=== PATIENT | female | born 1945 | race American Indian/Alaskan Native ===

== ENCOUNTER 2017-04-07 06:19 | Day surgery (SDC) | payer MEDICARE, OTHER ==
[2017-03-29 12:01] VITALS: BMI 37.4
[2017-04-07 07:11] LABS: BASO # 0.02 K/mm3 (0.0-2.0); BASO % 0.4 % (0.0-3.0); EOS # 0.1 (0.0-0.7); GRAN # 2.92 (1.4-6.5); GRAN % 62.7 % (50.0-68.0); HEMOGLOBIN 10.1 g/dL (12.0-16.0); LYMPH # 1.3 (1.2-3.4); LYMPH % 27.5 % (22.0-35.0); MEAN CELL VOLUME 84.3 fl (80.0-105.0); MEAN CORPUSCULAR HEMOGLOBIN 25.6 pg (25.0-35.0); MEAN CORPUSCULAR HGB CONC 30.4 g/dl (31.0-37.0); MEAN PLATELET VOLUME 10.5 fl (7.0-11.0); MONO # 0.3 (0.1-0.6); MONO % 6.4 % (1.0-6.0); RBC 3.94 10^6/uL (3.5-6.1); RED CELL DISTRIBUTION WIDTH 15.3 % (11.5-14.5); WHITE BLOOD COUNT 4.7 10^3/ul (4.5-11.0)
[2017-04-07] MEDS ORDERED: Lidocaine 2% Inj (20ml) ONE (07:17)
[2017-04-07] MEDS ORDERED: Phenylephrine 10 mg/ml Inj ONE (07:17)
[2017-04-07] MEDS ORDERED: Midazolam 2 MG/2 ML VIAL ONE ×2 (07:18→08:22)
[2017-04-07] MEDS ORDERED: Iohexol 350mgl/ml 50 ML ONE (07:18)
[2017-04-07] MEDS ORDERED: Iodixanol 320 MG/ML 200 ML BOTTLE IV ONE (07:18)
[2017-04-07] MEDS ORDERED: Iodixanol 320 MG/ML 100 ML BOTTLE IV ONE (07:18)
[2017-04-07 07:19] LABS: CALCIUM 9.7 mg/dL (8.4-10.5)
[2017-04-07] MEDS ORDERED: Nitroglycerin 50mg in D5W 50 MG/250 ML BOTTLE IV ONE (07:19)
[2017-04-07] MEDS ORDERED: HEPARIN SODIUM/NS 2,000 ML IV ONE (07:19)
[2017-04-07 07:25] LABS: INR 1.08 (0.93-1.08); PARTIAL THROMBOPLASTIN TIME 29.7 Seconds (25.1-36.5); PROTHROMBIN TIME 11.9 SECONDS (9.4-12.5)
--- NOTE | 2017-04-07 08:08 | HP ---
REASON FOR ADMISSION: Left heart cath, possible angioplasty, abnormal stress test. BRIEF CLINICAL HISTORY: This is a 71-year-old female with past medical history significant for diabetes, hypertension, hyperlipidemia, PAD, who had abnormal stress test, the patient is scheduled for elective cardiac cath, possible angioplasty. The patient is complaining of chest discomfort and was referred to Dr. Spaulding by Dr. Emily Zavala for cardiac evaluation because of shortness of breath and chest pain. PAST MEDICAL HISTORY: Significant for hypertension, gastroesophageal reflux disease, borderline diabetes. SOCIAL HISTORY: Denies any smoking. Denies any history of alcohol abuse. CURRENT MEDICATIONS: The patient is taking albuterol, ProAir, valsartan, tramadol, omeprazole, Singulair, gabapentin, carvedilol, aspirin, and Xanax. ALLERGIES: TO CODEINE. PREVIOUS CARDIAC WORKUP: As follows, the patient had a stress test dated 02/23/2017 that shows abnormal study, partially reversible anteroseptal defect suspicious for ischemia, ejection fraction 73%. When comparison made from 08/05/2014, these defects appear to be new. REVIEW OF SYSTEMS: As per HPI. PHYSICAL EXAMINATION: VITAL SIGNS: Height of the patient is 5 feet 6 inches, weight of the patient is 232 pounds, body mass index 37.4 kg/m sq. Rest of the examination as follows. Heart rate 56, blood pressure 130/70. HEENT: PERRLA, intact. NECK: Supple. No carotid bruits. No thyromegaly. CHEST: Clear to auscultation. HEART: S1 and S2 regular. ABDOMEN: Soft. EXTREMITIES: Clubbing and cyanosis negative. IMPRESSION: Hypertension, borderline diabetes, hyperlipidemia, abnormal stress test. The patient is scheduled for elective cardiac cath, possible angioplasty. Risks, benefits, and alternatives were discussed with the patient. The patient agreed. We will proceed for cardiac catheterization. We will follow the lab result when the lab result available. We will give 300 mg of Plavix and 325 mg of aspirin. Further recommendation after the cardiac catheterization. We will follow with you. Thank you, Dr. Spaulding/Dr. Emily Zavala for providing us the opportunity in taking care of the patient, Selma Blackburn. We will update you the patient's condition after the cardiac catheterization. Antolin Tobar MD cc: MD Emily Claudio DO MTDD
[2017-04-07 08:12] VITALS: RESP 18
[2017-04-07] MEDS ORDERED: Bacitracin 500 Units/gm Oint Foilpak UD TOP ONE (08:47)
[2017-04-07] MEDS ORDERED: Potassium Chloride 20 mEq ER Tab PO ONE (08:50)
[2017-04-07] MEDS ORDERED: Sodium Chloride 0.9% 1,000 ML IV SCH (09:00)
[2017-04-07 09:20] VITALS: TEMP 97.8
[2017-04-07] MEDS ORDERED: Bacitracin 500 Units/gm Oint Foilpak UD ONE (10:59)
[2017-04-07 11:49] VITALS: PULSE 69; O2SAT 100
[2017-04-07 12:04] VITALS: BP 175/93
--- NOTE | 2017-04-07 15:24 | CARD ---
APPROVED REPORT Procedure(s) performed: Left Heart Catheterization HISTORY The patient is a 71 year-old female with a history of : most recent EF: 73%. (EF Method: RADIONUCLIDE), peripheral vascular disease, chronic lung disease, tobacco history() : The patient is a current smoker , hypertension , dyslipidemia . INDICATION The indication(s) include : positive stress test, dyspnea. CASE TECHNIQUE The patient was brought electively to the Cardiac Catheterization Laboratory in a fasting state and was prepped and draped in a sterile manner. The left wrist was infiltrated with 2% Lidocaine subcutaneous anesthesia. A 6FR Dianwoba ACCESS KIT sheath was inserted into the performed using coronary diagnostic catheters. The left coronary system was accessed and visualized with a Diagnostic catheter. The right coronary system was accessed and visualized with a Diagnostic catheter. The left ventricle was accessed and visualized with a 5 Fr Pigtail 145 (Angled) catheter. Left ventriculogram was performed in JONES projection. Closure device was deployed with a Fr TR Band (Large) without any complications. The patient tolerated the procedure well and there were no complications associated with the procedure. Vessel Analysis The patient's coronary anatomy is left dominant. The left main coronary artery is a large size vessel with diffuse calcification noted throughout this vessel and without significant stenosis. The left main bifurcates to the left anterior descending and circumflex. The left anterior descending artery is a large size vessel with diffuse calcification noted throughout this vessel and without significant stenosis. There is a 40-50% stenosis in the proximal segment. The first diagonal branch is a medium size vessel with diffuse calcification noted throughout this vessel and without significant stenosis. There is a 40% stenosis in the ostial segment. The second diagonal branch is a small size vessel with diffuse calcification noted throughout this vessel and without significant stenosis. The circumflex artery is a large size vessel with diffuse calcification noted throughout this vessel and without significant stenosis. The first obtuse marginal branch is a medium size vessel . There is a 70% stenosis in the ostial segment. The second obtuse marginal branch is a large size vessel . There is a 60% stenosis in the proximal segment. The left posterior descending artery is a large size vessel with diffuse calcification noted throughout this vessel and without significant stenosis. The right coronary artery is a small size vessel non dominant. There is a 100% stenosis in the proximal segment. 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 There was no cardiomyopathy. The left ventricular ejection fraction is estimated to be 70-75%. The left ventricular end diastolic pressure is 20 mmHg. There was no gradient across the aortic valve upon pullback. 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 Moderate Diz. in CX Dominant and Mild to Moderate in LAD. Hyperdynamic Ventricle, EF=70-75%, EDP-20 mmof hg. Recommendations Aggressive Medical TherapyCardiac Risk Reduction Program Weight Loss Reduction Program Keep LDL< 70, Monitor Renal Closely Creatinine clearance -40-50 cc. F/u SMA-7 in 1-2 weeks. CC; Drs. Matthew cross / Jasson.
--- NOTE | 2017-04-07 17:55 | CARD ---
APPROVED REPORT EKG Measurement Heart [id number] <Conclusion> Normal sinus rhythm T wave abnormality, consider inferior ischemia Abnormal ECG
== END 2017-04-07 13:00 | disposition home or self-care (01) ==
LOC: CATH 06:19
PROVIDERS: ATTEND Internal Medicine Cardiovascular Disease
DX: I25.10 Atherosclerotic heart disease of native coronary artery without angina pectoris (principal); I10 Essential (primary) hypertension; E11.51 Type 2 diabetes mellitus with diabetic peripheral angiopathy without gangrene; E78.5 Hyperlipidemia, unspecified; K21.9 Gastro-esophageal reflux disease without esophagitis; Z79.82 Long term (current) use of aspirin; F17.200 Nicotine dependence, unspecified, uncomplicated; J44.9 Chronic obstructive pulmonary disease, unspecified; R94.39 Abnormal result of other cardiovascular function study
CPT/HCPCS: 36415; 80048; 80061; 85025; 85610; 85730; 86850; 86900; 93005; 93458; 93567; 99152; 99153; C1769; C1887 ×2; J1644 ×2; J2250; J3010; J7040 ×2

== ENCOUNTER 2017-05-31 13:48 | Emergency (ER) | payer MEDICARE, MEDICAID ==
[2017-05-31 13:48] VITALS: BMI 37.4
[2017-05-31 14:00] VITALS: TEMP 98.8
--- NOTE | 2017-05-31 14:45 | ED PDOC ---
Arrival/HPI - General Chief Complaint: High Blood Pressure Time Seen by Provider: 05/31/17 13:58 Historian: Patient - History of Present Illness Narrative History of Present Illness (Text): 05/31/17 14:44 71 yo female, hx of htn, presents with "high b/p". pt has been taking her b/p over weeks highest 190 systolic. pt states mild french. no fevers, cp, cough, sob, leg pain, abdominal pain. Past Medical History - Provider Review Nursing Documentation Reviewed: Yes - Infectious Disease Hx of Infectious Diseases: None - Tetanus Immunization Tetanus Immunization: Unknown - Reproductive Menopause: Yes - Cardiac Hx Hypertension: Yes Hx Pacemaker: No - Pulmonary Hx Chronic Obstructive Pulmonary Disease (COPD): Yes - Neurological Hx Paralysis: No - HEENT Hx HEENT Disorder: No - Renal Hx Renal Disorder: No - Endocrine/Metabolic Hx Endocrine Disorders: Yes Hx Diabetes Mellitus Type 2: Yes - Hematological/Oncological Hx Blood Transfusions: Yes Hx Blood Transfusion Reaction: No - Integumentary Hx Dermatological Disorder: No - Musculoskeletal/Rheumatological Hx Musculoskeletal Disorders: Yes (RESTLESS LEG SYNDROME) - Gastrointestinal Hx Gastrointestinal Disorders: Yes Hx Gall Bladder Disease: Yes Hx Gastroesophageal Reflux: Yes - Genitourinary/Gynecological Hx Genitourinary Disorders: No - Psychiatric Hx Emotional Abuse: No Hx Physical Abuse: No Hx Substance Use: No - Past Surgical History Past Surgical History: No Previous - Surgical History Other/Comment: GALLSTONE REMOVAL. TUBAL LIGATION. FATTY POCKET REMOVAL LEFT ABD - Anesthesia Hx Anesthesia Reactions: No (FEARFUL) Hx Malignant Hyperthermia: No - Suicidal Assessment Feels Threatened In Home Enviroment: No Family/Social History - Physician Review Nursing Documentation Reviewed: Yes Family/Social History: Unknown Family HX Smoking Status: Light Smoker < 10 Cigarettes Daily Hx Alcohol Use: Yes ([employer]IALLY) Hx Substance Use: No Hx Substance Use Treatment: No Allergies/Home Meds Allergies/Adverse Reactions: Allergies codeine Adverse Reaction (Intermediate, Verified 05/31/17 13:59) STOMACH PAIN Home Medications: Home Meds Medication Instructions Recorded Confirmed Carvedilol [Coreg] 12.5 mg PO BID 04/20/13 05/31/17 Gabapentin [Neurontin] 600 mg PO BID 06/16/15 05/31/17 Omeprazole [Prilosec] 20 mg PO QAM 06/16/15 05/31/17 Tramadol HCl [Ultram] 50 mg PO Q8H PRN 06/16/15 05/31/17 Valsartan [Diovan] 320 mg PO DAILY 06/16/15 05/31/17 Aspirin [Ecotrin] 81 mg PO DAILY 03/29/17 05/31/17 Montelukast [Singulair] 10 mg PO DAILY 03/29/17 05/31/17 Review of Systems - Review of Systems Constitutional: Normal Eyes: Normal ENT: Normal Respiratory: Normal Cardiovascular: Normal Gastrointestinal: Normal Genitourinary Female: Normal Musculoskeletal: Normal Skin: Normal Neurological: Headache Endocrine: Normal Hemo/Lymphatic: Normal Psychiatric: Normal Physical Exam Vital Signs Reviewed: Yes Vital Signs Temp Pulse Resp BP Pulse Ox 05/31/17 17:36 62 16 158/92 H 100 05/31/17 17:00 64 18 155/71 H 100 05/31/17 15:04 68 17 158/76 H 100 05/31/17 13:52 98.8 F 72 18 172/79 H 98 Temperature: Afebrile Blood Pressure: Normal Pulse: Regular Respiratory Rate: Normal Appearance: Positive for: Well-Appearing, Non-Toxic, Comfortable Pain Distress: None Mental Status: Positive for: Alert and Oriented X 3 - Systems Exam Head: Present: Atraumatic, Normocephalic Pupils: Present: PERRL Extroacular Muscles: Present: EOMI Conjunctiva: Present: Normal Mouth: Present: Moist Mucous Membranes Neck: Present: Normal Range of Motion Respiratory/Chest: Present: Clear to Auscultation, Good Air Exchange. No: Respiratory Distress, Accessory Muscle Use Cardiovascular: Present: Regular Rate and Rhythm, Normal S1, S2. No: Murmurs Abdomen: Present: Normal Bowel Sounds. No: Tenderness, Distention, Peritoneal Signs, Rebound, Guarding Back: Present: Normal Inspection Upper Extremity: Present: Normal Inspection. No: Cyanosis, Edema Lower Extremity: Present: Normal Inspection, NORMAL PULSES. No: Edema, Tenderness, Swelling Neurological: Present: GCS=15, CN II-XII Intact, Speech Normal Skin: Present: Warm, Dry, Normal Color. No: Rashes Psychiatric: Present: Alert, Oriented x 3, Normal Insight, Normal Concentration Medical Decision Making ED Course and Treatment: 05/31/17 18:28 ro hypertensive urgency vs emergnecy- labs imaging pending pt reassessed bp improved. pt well appearing, neuro intact labs unremarkable pt smilining in nad agrees to pmd outpt - Lab Interpretations Lab Results: 05/31/17 14:57 05/31/17 14:57 Lab Results 05/31/17 14:57: Sodium 144, Potassium 3.9, Chloride 104, Carbon Dioxide 29, Anion Gap 15, BUN 16, Creatinine 1.2, Est GFR ( Amer) 54, Est GFR (Non- Af Amer) 45, Random Glucose 102, Calcium 10.5, Magnesium 2.2, Total Bilirubin 0.3, AST 17, ALT 18, Alkaline Phosphatase 76, Lactate Dehydrogenase 370, Total Creatine Kinase 104, Troponin I 0.02, Total Protein 7.6, Albumin 4.1, Globulin 3.5, Albumin/Globulin Ratio 1.2 05/31/17 14:57: PT 12.3, INR 1.08, APTT 33.2 05/31/17 14:57: WBC 4.3 L, RBC 3.95, Hgb 10.4 L, Hct 32.7 L, MCV 82.8, MCH 26.3 , MCHC 31.8, RDW 15.1 H, Plt Count 218, MPV 10.5, Gran % 64.8, Lymph % (Auto) 26.2, [place] % (Auto) 6.5 H, Eos % (Auto) 2.3, Baso % (Auto) 0.2, Gran # 2.80, Lymph # (Auto) 1.1 L, [place] # (Auto) 0.3, Eos # (Auto) 0.1, Baso # (Auto) 0.01 05/31/17 14:25: Urine Color Yellow, Urine Appearance Clear, Urine pH 6.5, Ur Specific Corinne 1.010, Urine Protein Trace H, Urine Glucose (UA) Negative, Urine Ketones Negative, Urine Blood Negative, Urine Nitrate Negative, Urine Bilirubin Negative, Urine Urobilinogen 0.2, Ur Leukocyte Esterase Trace H, Urine RBC Negative, Urine WBC 2 - 5, Ur Epithelial Cells Many, Urine Bacteria Many I have reviewed the lab results: Yes - RAD Interpretation Radiology Orders: 05/31/17 14:41 HEAD W/O CONTRAST [CT] 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 Ulcer: No History Surgical Site Infection Following: None - Disposition Have Diagnosis and Disposition been Completed?: Yes Diagnosis: High blood pressure Disposition: HOME/ ROUTINE Disposition Time: 06:30 Condition: STABLE Discharge Instructions (ExitCare): High Blood Pressure in Adults, Controlling Your Blood Pressure Through Lifestyle, Headache, Adult (DC) Additional Instructions: please follow up with your doctor. please discuss your b/p meds. return to er with worsening symptoms or concerns. Referrals: [facility] [Outside] - Follow up with primary [facility] [place] [Outside] - Follow up with primary Emily Zavala DO [Primary Care Provider] - Follow up with primary Forms: [employer] (Luxembourgish)
[2017-05-31 15:04] VITALS: O2SAT 100
[2017-05-31 15:07] LABS: BASO # 0.01 K/mm3 (0.0-2.0); BASO % 0.2 % (0.0-3.0); EOS # 0.1 (0.0-0.7); EOS % 2.3 % (1.5-5.0); GRAN # 2.8 (1.4-6.5); GRAN % 64.8 % (50.0-68.0); HEMOGLOBIN 10.4 g/dL (12.0-16.0); LYMPH # 1.1 (1.2-3.4); LYMPH % 26.2 % (22.0-35.0); MEAN CELL VOLUME 82.8 fl (80.0-105.0); MEAN CORPUSCULAR HEMOGLOBIN 26.3 pg (25.0-35.0); MEAN CORPUSCULAR HGB CONC 31.8 g/dl (31.0-37.0); MEAN PLATELET VOLUME 10.5 fl (7.0-11.0); MONO # 0.3 (0.1-0.6); MONO % 6.5 % (1.0-6.0); RBC 3.95 10^6/uL (3.5-6.1); RED CELL DISTRIBUTION WIDTH 15.1 % (11.5-14.5); WHITE BLOOD COUNT 4.3 10^3/ul (4.5-11.0)
[2017-05-31 15:18] LABS: INR 1.08 (0.93-1.08); PARTIAL THROMBOPLASTIN TIME 33.2 Seconds (25.1-36.5); PROTHROMBIN TIME 12.3 SECONDS (9.4-12.5)
[2017-05-31 15:19] LABS: ALB/GLOB RATIO 1.2 (1.1-1.8); ALBUMIN 4.1 g/dL (3.0-4.8); CALCIUM 10.5 mg/dL (8.4-10.5); MAGNESIUM 2.2 mg/dL (1.7-2.2)
[2017-05-31 15:20] LABS: PH,URINE 6.5 (4.7-8.0); URINE APPEARANCE CLEAR (CLEAR); URINE BILIRUBIN NEGATIVE (NEGATIVE); URINE BLOOD NEGATIVE (NEGATIVE); URINE COLOR YELLOW (YELLOW); URINE GLUCOSE (UA) NEGATIVE (NEGATIVE); URINE LEUKOCYTE ESTERASE TRACE Leu/uL (NEGATIVE); URINE NITRATE NEGATIVE (NEGATIVE); URINE PROTEIN TRACE mg/dL (<30 mg/dL); URINE UROBILINOGEN 0.2 E.U./dL (<1 E.U./dL)
[2017-05-31 15:30] LABS: TROPONIN I 0.02 ng/mL
[2017-05-31 15:53] LABS: URINE BACTERIA MANY (NEG); URINE EPITHELIAL CELLS MANY /hpf (0-5); URINE RBC NEGATIVE /hpf (0-2)
--- NOTE | 2017-05-31 17:03 | CT ---
PROCEDURE: CT HEAD WITHOUT CONTRAST. HISTORY: french COMPARISON: None available. TECHNIQUE: Axial computed tomography images were obtained through the head/brain without intravenous contrast. Radiation dose: Total exam DLP = 953 mGy-cm. This CT exam was performed using one or more of the following dose reduction techniques: Automated exposure control, adjustment of the mA and/or kV according to patient size, and/or use of iterative reconstruction technique. FINDINGS: HEMORRHAGE: No intracranial hemorrhage. BRAIN: No mass effect or edema. No atrophy or chronic microvascular ischemic changes. VENTRICLES: Unremarkable. No hydrocephalus. CALVARIUM: Unremarkable. PARANASAL SINUSES: Unremarkable as visualized. No significant inflammatory changes. MASTOID AIR CELLS: Unremarkable as visualized. No inflammatory changes. OTHER FINDINGS: None. IMPRESSION: No acute intracranial findings
[2017-05-31 17:38] VITALS: BP 158/92; PULSE 62; RESP 16
--- NOTE | 2017-06-01 02:29 | CARD ---
APPROVED REPORT EKG Measurement Heart [id number] CA [id number] <Conclusion> Poor data quality, interpretation may be adversely affected Normal sinus rhythm Minimal voltage criteria for LVH, may be normal variant Borderline ECG
== END 2017-05-31 17:20 | disposition home or self-care (01) ==
LOC: ED 13:48
DX: I10 Essential (primary) hypertension (principal); J44.9 Chronic obstructive pulmonary disease, unspecified; E11.9 Type 2 diabetes mellitus without complications; F17.210 Nicotine dependence, cigarettes, uncomplicated